=== PATIENT | female | born 1950 | race Caucasian/White ===

== ENCOUNTER 2019-06-30 13:18 | Emergency (ER) | payer OTHER ==
[~2019-06-30] VITALS: Ht 162.6 cm; Wt 77.1 kg
[2019-06-30 13:26] VITALS: BP 148/75
[2019-06-30] MEDS ORDERED: OXYBUTYNIN 5 MG5 M2 PO (13:44)
[2019-06-30] MEDS ORDERED: NEURONTIN 400400 M1 PO (13:44)
[2019-06-30] MEDS ORDERED: ATENOLOL 100MG100 MG PO (13:44)
[2019-06-30] MEDS ORDERED: NIZATIDINE150 MG PO (13:44)
[2019-06-30] MEDS ORDERED: PREDNISONE 20 M20 MG PO (13:50)
[2019-06-30] MEDS ORDERED: ZANTAC 150MG T150 MG PO (13:50)
== END 2019-06-30 14:07 | disposition home or self-care (01) ==
LOC: ER 13:18
DX: T20.45XA Corrosion of unspecified degree of scalp [any part], initial encounter (principal); T32.0 Corrosions involving less than 10% of body surface; Y93.89 Activity, other specified; Y92.89 Other specified places as the place of occurrence of the external cause; Y99.8 Other external cause status